=== PATIENT | female | born 1940 | race Caucasian/White ===

== ENCOUNTER 2022-08-26 11:55 | Outpatient (CLI) | payer OTHER, SELFPAY ==
[2022-08-26 13:58] LABS: Chloride* 100 mmol/L (96-114)
[2022-08-26 13:59] LABS: Potassium* 4.6 mmol/L (3.6-5.1); Sodium* 137 mmol/L (135-149)
[2022-08-26 14:01] LABS: Cholesterol* 178 mg/dL (90-199); Creatinine* 1.4 mg/dL (0.5-1.5); Estimated Glomerular Filt Rate 37 ml/min
[2022-08-26 14:02] LABS: Alanine Aminotransferase* 14 U/L (4-35); Blood Urea Nitrogen* 25 mg/dL (7-30); Calcium* 9.6 mg/dL (8.4-10.6); Carbon Dioxide* 28 mmol/L (20-32); Glucose* 216 mg/dL (60-115); HDL Cholesterol* 47 mg/dL (>=50); LDL Cholesterol Calculated 96 mg/dL (<100); Triglycerides* 176 mg/dL (40-149)
== END 2022-08-26 11:56 | disposition home or self-care (01) ==
PROVIDERS: PCP Family Medicine; Visit Provider Family Medicine
DX: Z00.00 Encounter for general adult medical examination without abnormal findings (principal); E78.5 Hyperlipidemia, unspecified; I10 Essential (primary) hypertension; E11.9 Type 2 diabetes mellitus without complications
CPT/HCPCS: 80048; 80061; 84460

== ENCOUNTER 2023-11-25 08:44 | Outpatient (CLI) | payer OTHER, SELFPAY | END 2023-11-25 08:45 | disposition home or self-care (01) | PROVIDERS: PCP Family Medicine; Visit Provider Family Medicine | DX: E11.9 Type 2 diabetes mellitus without complications (principal); E78.2 Mixed hyperlipidemia; N18.30 Chronic kidney disease, stage 3 unspecified; I10 Essential (primary) hypertension; Z79.4 Long term (current) use of insulin | CPT/HCPCS: 80048; 80061; 84460 ==

== ENCOUNTER 2024-09-26 11:37 | Outpatient (CLI) | payer OTHER, SELFPAY ==
--- OUTSIDE RECORDS SUMMARY | 2024-09-26 11:41 | XMS_ITS | Clinical Summary ---
Author Organization [facility] Address [place], [place] [address] Care Team Providers Care [employer] Name Role Phone Pcp, No Primary Care Provider Unavailabl e Allergies Active Allergy Reactions Criticality Noted Date Comments Phenytoin Rash,Fever 07/30/2008 Pravastatin 11/14/2009 Sulfamethoxazole-Trimethoprim 2007 NAUSEA, WEAKNESS Medications Medication Sig Dispensed Refills Start Date End Date Status ASPIRIN 81 MG TAB, DELAYED RELEASE one every day 30 0 04/17/2009 Active biotin-keratin 10,000-100 mcg-mg tabIndications:Type 2 diabetes mellitus with stage 3 chronic kidney disease, without long-term current use of insulin (HC) Take by mouth. 0 02/22/2018 Active Coenzyme Q10 (CO Q-10) 200 mg capsuleIndications:H yperlipidemia, unspecified hyperlipidemia type Take 1 capsule by mouth once daily. 90 capsule 03/15/2019 Active lancets (ACCU-CHEK MULTICLIX LANCET)Indications:D iabetes mellitus (HC) Test 2 times per day. 200 Each 3 03/15/2019 Active penicillin v potassium (PEN-VEE K) 500 mg tablet TAKE FOUR TABLETS BY MOUTH ONE HOUR BEFORE APPOINTMENT 03/19/2020 Active calcium-vitamin D3-vitamin K (Viactiv) 500-100-40 mg-unit-mcg chewable Chew 1 Tablet by mouth once daily. 0 05/06/2021 Active rosuvastatin (CRESTOR) 5 mg tabletIndications:Hy perlipidemia, unspecified hyperlipidemia type TAKE 1/2 (ONE-HALF) TABLET BY MOUTH EVERY WEDNESDAY AND EVERY WEDNESDAY 12 tablet. 10/21/2021 Active lisinopriL (PRINIVIL; ZESTRIL) 10 mg tabletIndications:Es sential hypertension, benign Take 1 Tablet (10 mg) by mouth once daily. 90 tablet. 10/21/2021 Active glimepiride (AMARYL) 4 mg tabletIndications:Ty pe 2 diabetes mellitus with stage 3a chronic kidney disease, without long-term current use of insulin (HC) 4 mg oral BID 180 Tablet 10/21/2021 Active blood sugar diagnostic (Accu-Chek Marisabel Plus test strp) stripIndications:Typ e 2 diabetes mellitus with stage 3b chronic kidney disease, without long-term current use of insulin (HC) Dispense item covered by pt ins. E11.9 NIDDM type II - Test 2 time/day due to elevated A1C. 200 Each 3 10/21/2021 Active insulin degludec, U-100, (Tresiba FlexTouch U-100) 100 unit/mL (3 mL) penIndications:type 2 diabetes mellitus Inject 10 units subcutaneous every morning. Increase 2 units every 4 days until fasting bgs are under 130, max units/day-50 15 mL 6 02/06/2022 Active hydroCHLOROthiazide (HCTZ) 25 mg tabletIndications:Es sential hypertension, benign TAKE 1 TABLET EVERY DAY 90 Tablet 07/15/2022 Active True Metrix Glucose MeterIndications:Typ e 2 diabetes mellitus with stage 3b chronic kidney disease, without long-term current use of insulin (HC) USE DIRECTED 1 Kit 08/08/2022 Active blood sugar diagnostic (True Metrix Glucose Test Strip) stripIndications:Typ e 2 diabetes mellitus with stage 3b chronic kidney disease, without long-term current use of insulin (HC) Dispense item covered by pt ins. E11.65 NIDDM type II, uncontrolled - Test 2 times/day. Reason: High A1C 200 Each 3 02/22/2023 Active Droplet Pen Needle 32 gauge x 5/32Indications:Typ e 2 diabetes mellitus with stage 3b chronic kidney disease, without long-term current use of insulin (HC) USE FOR INSULIN DIRECTED 100 Each 2 03/21/2023 Active alcohol swabs (DropSafe Alcohol Prep Pads)Indications:Typ e 2 diabetes mellitus with stage 3b chronic kidney disease, without long-term current use of insulin (HC) USE DIRECTED 200 Each 2 05/23/2023 Active lancets (TRUEplus Lancets) 33 gauge miscIndications:Type 2 diabetes mellitus with stage 3b chronic kidney disease, without long-term current use of insulin (HC) TEST TWO TIMES DAILY 200 Each 2 05/23/2023 Active Active Problems Problem Noted Date Diagnosed Date ACP (advance care planning) 01/26/2022 Overview (01/26/2022): Health Care Directive scanned. See documents dated 01/08/2022. Personal history of colonic polyps 04/06/2013 Subjective tinnitus 12/03/2009 Sensorineural hearing loss, asymmetrical 010 Hyperlipidemia 09/08/2008 Migraine, unspecified, witho ut mention of intractable migraine without mention of status migrainosus 09/08/2008 Type 2 diabetes mellitus wit h stage 3 chronic kidney disease, without long-term current use of insulin 08/01/2008 Overview (03/25/2012): A1C below 8 Essential hypertension, benign 07/31/2008 Resolved Problems Problem Noted Date Diagnosed Date Resolved Date Primary osteoarthritis of knee 06/28/2017 07/31/2020 UTI (urinary tract infection) 09/08/2008 05/02/2013 Overview (01/21/2010): Updated by system to replace inactive record Immunizations Name Administration Dates Next Due AMB Influenza, IIV3 (Age >=3 years)(Flu Clinic Only) 08/27/2010 COVID-19 vaccine (Qompium 30mcg/0.3mL) PF, MDV 01/07/2021,12/17/2020 Influenza Virus, Unspecified 09/04/2020 Influenza, High-dose Inactivated 018,08/31/2017,09/05/2015,2013 Influenza, IIV3 (Age >=3 years) 08/24/20 11,09/08/2009,09/24/2008,2006 Influenza, Inactivated AIIV4 (Age 65+ Years) Preserv Free 08/20/2021 Influenza, Inactivated IIV3 (Age 65+ Years) Preserv Free 08/08/2019 Pneumococcal Poly,23-Valent (Pneumovax) 09/24/2008 Pneumococcal conj 13-Valent (Prevnar 13) 10/16/2015 Tdap 09/12/2015,07/31/2008 Zoster (Zostavax-ZVL, live) 07/31/2008 Family History Medical History Relation Name Comments Hypertension Father Diabetes Maternal Grandfather Diabetes Maternal Grandmother Cancer-breast Mother Heart Disease Mother [place] Hypertension Sister 2 Heart Disease Sister 3 Relation Name Status Comments Daughter Alive x4 Father Maternal Grandfather Maternal Grandmother Mother Paternal Grandfather Paternal Grandmother Sister 1 Alive Sister 2 Sister 3 Social History Tobacco Use Types Packs/Day Years Used Date Smoking Tobacco: Never Smokeless Tobacco: Never Tobacco Cessation:Counseling Given: Yes Alcohol Use Standard Drinks/Week Comments Yes 1 (1 standard drink = 0.6 oz pure alcohol) will have a glass of wine every once in a while PHQ-2 Answer Date Recorded PHQ-2 TOTAL SCORE 0 10/21/2021 Social Connections Answer Date Recorded Frequency of Communication with Friends and Fami ly Not on file 11/08/2021 Financial Resource Strain Answer Date R ecorded Difficulty of Paying Living Expenses Not on file 11/08/2021 Difficulty of Paying Living Expenses Not on file 11/08/2021 Sex and Gender Information Value Date Recorded Sex Assigned at Not on file Gender Identity Not on file Sexual Orientation Not on file Obstetrics History Para Term AB IAB SAB Ectopic Multiple Livin g Live Births 4 5 Date Outcome GA Total Labor Labor/2nd/3rd Weight Sex Type Anes PTL Lisa A1 A5 Name Clin Last Filed Vital Signs Vital Sign Reading Time Taken Comments Blood Pressure 136/62 01/20/2022 2:36 PM CDT Pulse 76 01/20/2022 2:36 PM CDT Temperature 36.6 C (97.9 F) 07/22/2021 10:28 AM CDT Respiratory Rate 20 01/20/2022 2:36 PM CDT Oxygen Saturation 97% 11/15/2016 8:17 PM [employer] Inhaled Oxygen Concentration - - Weight 78.2 kg (172 lb 8 oz) 01/20/2022 2:36 PM CDT Height 165.1 cm (5' 5) 01/20/2022 2:36 PM CDT Body Mass Index 28.71 01/20/2022 2:36 PM CDT Plan of Treatment Health Maintenance Due Date Last Done Comments DEXA/DXA scan for age 65+ 2003 Zoster (shingles) series for age 50+ (2 of 3) 09/25/2008 07/31/2008 RSV vaccine for adults or (1 - 1-dose 75+ series) 2013 Medicare Wellness for age 65+ 07/23/2022 07/22/2021, 07/31/2020 Depression screening for age 12+ 10/21/2022 10/21/2021, 10/21/2021, 10/21/2021, Additional history exists BMI (ht and wt on same day) for age 18+ 01/20/2023 01/20/2022, 10/21/2021, 07/22/2021, Additional history exists COVID-19 vaccine series ( season) 2024 08/07/2021, 01/07/2021, 12/17/2020 Influenza for age 65+ 07/09/2024 08/20/2021 , 09/04/2020, 08/08/2019, Additional history exists Tetanus booster 09/12/2025 09/12/2015, 07/31/2008 Tdap Completed 09/12/2015, 07/31/2008 Pneumococcal series for age 65+ Completed 5, 09/24/2008 Advance Directives Documents on File Type Date Recorded Patient Automatic Pattern Edger Expl anation Healthcare Directive 01/08/2022 022 Treatment Guidelines 01/08/2022 Care Teams [employer] Relationship Specialty Start Date End Date Pcp, No . PCP - General 06/29/23
== END 2024-09-26 11:38 | disposition home or self-care (01) ==
PROVIDERS: PCP Family Medicine; Visit Provider Family Medicine
DX: N18.30 Chronic kidney disease, stage 3 unspecified (principal); E11.9 Type 2 diabetes mellitus without complications; E78.2 Mixed hyperlipidemia; I10 Essential (primary) hypertension; Z79.4 Long term (current) use of insulin
CPT/HCPCS: 80048; 80061; 84460

== ENCOUNTER 2025-10-08 16:24 | Outpatient (CLI) | payer MEDICARE, BC, SELFPAY | END 2025-10-08 16:25 | disposition home or self-care (01) | PROVIDERS: PCP Family Medicine; Visit Provider Family Medicine | DX: E78.2 Mixed hyperlipidemia (principal); E11.22 Type 2 diabetes mellitus with diabetic chronic kidney disease; I12.9 Hypertensive chronic kidney disease with stage 1 through stage 4 chronic kidney disease, or unspecified chronic kidney disease; N18.30 Chronic kidney disease, stage 3 unspecified; Z79.4 Long term (current) use of insulin | CPT/HCPCS: 80048; 80061; 84460; 85025 ==